=== PATIENT | female | born 1995 | race Hispanic/Latino ===

== ENCOUNTER 2016-07-30 14:42 | Outpatient (CLI) | payer OTHER, SELFPAY | END 2016-07-30 14:43 | disposition home or self-care (01) | LOC: MADLABBHPM 14:42 | PROVIDERS: ATTEND Family Medicine | DX: O09.892 Supervision of other high risk pregnancies, second trimester (principal) | CPT/HCPCS: 36415; 87086 ==

== ENCOUNTER 2016-08-10 09:02 | Outpatient (CLI) | payer OTHER ==
[2016-08-10 11:34] LABS: #Basophils 0.1 thou/uL (0.0-0.2); #Eosinphils 0.1 thou/uL (0.0-0.7); #Lymphocytes 1.5 thou/uL (1.20-3.40); #Monocytes 0.5 thou/uL (0.11-0.59); #Neutrophils 4.3 thou/uL (1.40-6.50); %Basophils 0.9 % (0.0-1.0); %Eosinophils 1.5 % (0.0-10.0); %Lymphocytes 23.1 % (21.0-51.0); %Monocytes 7.1 % (0.0-10.0); %Neutrophils 67.4 % (42.0-75.0); Hemoglobin 10.2 g/dL (12.0-16.0); Mean Corpuscular Hemoglobin 30.5 pg (27.0-31.0); Mean Corpuscular Volume 92.2 fl (81.0-99.0); Platelet Count 224 thou/uL (130-400); RBC Distribution Width 12.8 % (11.5-14.5); Red Blood Cell (RBC) Count 3.36 mill/uL (4.20-5.40); White Blood Cell (WBC) Count 6.3 thou/uL (4.8-10.8)
[2016-08-10 17:41] LABS: HIV (1/2) Antibody/Antigen Non-Reactive (NonReactive); HIV 1/2 INDEX 0.06 S/CO (<1.00)
== END 2016-08-10 09:03 | disposition home or self-care (01) ==
LOC: MADLABBHPM 09:02
PROVIDERS: ATTEND Family Medicine
DX: O09.893 Supervision of other high risk pregnancies, third trimester (principal)
CPT/HCPCS: 36415; 82950; 85025; 86592; 87389

== ENCOUNTER 2016-08-27 16:56 | Outpatient (CLI) | payer OTHER | END 2016-08-27 16:57 | disposition home or self-care (01) | LOC: MADLABBHPM 16:56 | PROVIDERS: ATTEND Family Medicine | DX: O09.893 Supervision of other high risk pregnancies, third trimester (principal) | CPT/HCPCS: 87086 ==

== ENCOUNTER 2016-09-10 14:38 | Outpatient (CLI) | payer OTHER | END 2016-09-10 14:39 | disposition home or self-care (01) | LOC: MADLABBHPM 14:38 | PROVIDERS: ATTEND Family Medicine | DX: O09.893 Supervision of other high risk pregnancies, third trimester (principal) | CPT/HCPCS: 36415; 87086 ==

== ENCOUNTER 2018-02-06 14:16 | Emergency (ER) | payer OTHER ==
[2018-02-06] MEDS ORDERED: Acetaminophen 325 MG TAB ONE (14:46)
[2018-02-06 15:03] LABS: Bilirubin Negative (Negative); Blood, Urine Trace (Negative); Clarity Clear (Clear); Glucose, Urine (Dipstick) Negative (Negative); Leukocyte Negative (Negative); Nitrite Negative (Negative); Protein, Urine (Dipstick) Negative (Neg-Trace); Urobilinogen 0.2 mg/dL (0.2-1.0)
[2018-02-06 15:05] LABS: Pregu Control Background? CLEAR/WHITE (CLR/WHITE); Pregu Control Bar Appear? YES (CONTROL BAR)
[2018-02-06 15:08] LABS: Pregnancy Test - Urine (BHCG) Negative (Negative)
[2018-02-06 15:10] LABS: Bacteria/HPF Rare-Few HPF (None Seen); RBC/HPF 0-3 HPF (0-3); WBC/HPF None Seen HPF (0-3)
== END 2018-02-06 15:20 | disposition home or self-care (01) ==
LOC: MADERS 14:16
DX: R42 Dizziness and giddiness (principal)
CPT/HCPCS: 36416; 81003; 81015; 81025; 99283

== ENCOUNTER 2018-11-30 11:46 | Outpatient (CLI) | payer OTHER ==
[2018-11-30 13:51] LABS: #Basophils 0.1 thou/uL (0.0-0.2); #Eosinphils 0.1 thou/uL (0.0-0.7); #Lymphocytes 1.5 thou/uL (1.20-3.40); #Monocytes 0.5 thou/uL (0.11-0.59); #Neutrophils 3.8 thou/uL (1.40-6.50); %Basophils 0.9 % (0.0-1.0); %Eosinophils 1.6 % (0.0-10.0); %Lymphocytes 25.9 % (21.0-51.0); %Monocytes 7.8 % (0.0-10.0); %Neutrophils 63.9 % (42.0-75.0); Mean Corpuscular HGB CONC 33.1 g/dL (32.0-36.0); Mean Corpuscular Hemoglobin 29.3 pg (27.0-31.0); Mean Corpuscular Volume 88.5 fL (78.0-98.0); Mean Platelet Volume 8.4 fL (7.4-10.4); Platelet Count 192 thou/uL (130-400); RBC Distribution Width 11.9 % (11.5-14.5); Red Blood Cell (RBC) Count 3.42 mill/uL (4.20-5.40); White Blood Cell (WBC) Count 5.9 thou/uL (4.8-10.8)
[2018-11-30 22:16] LABS: HIV (1/2) Antibody/Antigen Non-Reactive (NonReactive); HIV 1/2 INDEX 0.07 S/CO (<1.00); Syphilis Antibody Nonreactive (Nonreactive); Syphilis Antibody Index 0.03 S/CO (<1.00 Non-Reactive)
== END 2018-11-30 11:47 | disposition home or self-care (01) ==
LOC: MADLABBHPM 11:46
PROVIDERS: ATTEND Family Medicine
DX: O09.893 Supervision of other high risk pregnancies, third trimester (principal)
CPT/HCPCS: 36415; 82950; 85025; 86780; 87389

== ENCOUNTER 2021-01-30 09:10 | Outpatient (CLI) | payer OTHER ==
[2021-01-30 10:30] LABS: #Eosinphils 0.1 thou/uL (0.0-0.7); #Lymphocytes 1.2 thou/uL (1.20-3.40); #Monocytes 0.4 thou/uL (0.11-0.59); #Neutrophils 5.1 thou/uL (1.40-6.50); %Basophils 0.7 % (0.0-1.0); %Eosinophils 1.2 % (0.0-10.0); %Lymphocytes 18.3 % (21.0-51.0); %Monocytes 5.1 % (0.0-10.0); %Neutrophils 74.7 % (42.0-75.0); Hemoglobin 11.2 g/dL (12.0-16.0); Mean Corpuscular HGB CONC 33.6 g/dL (32.0-36.0); Mean Corpuscular Hemoglobin 31.4 pg (27.0-31.0); Mean Corpuscular Volume 93.3 fL (78.0-98.0); Mean Platelet Volume 9.8 fL (7.4-10.4); Platelet Count 195 thou/uL (130-400); RBC Distribution Width 12.1 % (11.5-14.5); Red Blood Cell (RBC) Count 3.57 mill/uL (4.20-5.40); White Blood Cell (WBC) Count 6.8 thou/uL (4.8-10.8)
[2021-01-30 17:49] LABS: HIV (1/2) Antibody/Antigen Non-Reactive (NonReactive); HIV 1/2 INDEX 0.08 S/CO (<1.00); Syphilis Antibody Nonreactive (Nonreactive); Syphilis Antibody Index 0.04 S/CO (<1.00 Non-Reactive)
== END 2021-01-30 09:11 | disposition home or self-care (01) ==
LOC: MADLAB 09:10
PROVIDERS: ATTEND Family Medicine
DX: O09.893 Supervision of other high risk pregnancies, third trimester (principal)
CPT/HCPCS: 36415; 82950; 85025; 86780; 87389